=== PATIENT | male | born 1955 | race Caucasian/White ===

== ENCOUNTER 2016-04-01 15:07 | Inpatient (IN) | payer MEDICARE, OTHER ==
--- NOTE | 2016-05-31 09:34 | HP ---
DATE OF CLINIC: 05/22/2016 ERICK BRINK : 1955 PLANNED PROCEDURE: Right Total Knee Arthroplasty DATE OF PROCEDURE: June 03, 2016 SURGEON: Alber Sampson M.D. PCP: Dr. Tony Arrieta HISTORY OF PRESENT ILLNESS Erick Brink is a 60 year old male. * Medication list reviewed with patient allergy list reviewed with patient. Mr. Brink is in today pre-operatively for his upcoming right total knee arthroplasty with Dr. Sampson on 06/04/16. Patient presents in good spirits and is very eager to move forward with his procedure. Patient denies recent illness, change in health, or prior surgical complications. Patient is post L TKA 12/19/14 and did well. Patient has history of CAD with multiple stents. He is anticoagulated with aspirin 325mg daily. Patient is post right craniotomy/subdural evacuation in 2003 with poor memory and seizure disorder since that is well controlled. Patient lives independently. His prior consultation with Dr. Sampson follows: 59-year-old male well-known to me for a recent left TKA. He presents today for recheck of that as well as evaluation of his chronic right knee pain. He is over 7 months out from his left TKA, this was complicated by poor postop motion requiring a manipulation 4 1/2 months ago. He has been very happy with his results with the function of his left knee since then. He feels quite limited with diffuse right knee discomfort, worse with weight-bearing, non-radicular, non-mechanical. He would like to discuss additional workup and management. No change in his medical situation. He does have history of coronary disease s/p prior stent placement. His medical services assistant is Dr. Stern. He also has an upcoming evaluation, by his discussion, with a physician at [facility] for workup regarding possible asbestos exposure in the past. He has a history of a craniotomy for subdural in 2003 with poor memory as well as a seizure disorder that is well controlled. He has not had a seizure for over 5 years. CURRENT MEDICATION * Albuterol HFA 108 (90 Base) MCG/ACT Aerosol Solution as directed 0 days, 0 refills * Aspirin EC 325 MG Tablet Delayed Release 1 once a day 0 days, 0 refills * Atenolol 25 MG Tablet 1 once a day 0 days, 0 refills * Atorvastatin Calcium 80 MG Tablet as directed 0 days, 0 refills * [facility]S Fluticasone Propionate 50 MCG/ACT Suspension as directed 0 days, 0 refills * Divalproex Sodium 500 MG Tablet Delayed Release as directed 2 tablets daily, 0 days, 0 refills * Folic Acid 1 MG Tablet 1 once a day 0 days, 0 refills * HydroCHLOROthiazide 25 MG Tablet as directed 0 days, 0 refills * HydrOXYzine HCl 25 MG Tablet as needed take 1 tablet 3 times daily as needed, 0 days, 0 refills * HydrOXYzine HCl 25 MG Tablet as directed 0 days, 0 refills * Keppra 750 MG Tablet as directed 0 days, 0 refills * LevETIRAcetam 750 MG Tablet 2 twice a day 0 days, 0 refills * Naprosyn 500 MG Tablet as directed: one tab by mouth every day as needed for pain, 60 days, 0 refills * Nitrostat 0.4 MG Tablet Sublingual as needed 0 days, 0 refills * OxyCODONE HCl 5 MG Tablet 1 every night as needed, 30 days, 0 refills * Potassium Chloride ER 10 MEQ Capsule Extended Release 1 once a day 0 days, 0 refills * Prazosin HCl 2 MG Capsule as directed 0 days, 0 refills * Sertraline HCl 100 MG Tablet 1 once a day 0 days, 0 refills * Symbicort 160-4.5 MCG/ACT Aerosol as directed 0 days, 0 refills * TraZODone HCl 50 MG Tablet as directed 0 days, 0 refills * Voltaren 1 % Gel apply 1-2 grams to affected area BID, 30 days, 1 refills PAST MEDICAL/SURGICAL HISTORY Reported: Medical: Cardiac history CAD, stents and history of Arthritis. Surgical / Procedural: Knee replacement Left knee replaced 12/19/[address] Sampson, Left knee manipulation under anesthesis 03/14/[address] Sampson and Cardiac surgery CAD/angioplasty and 3 drug eluting stents placed 10/18/2013. Patient doesn't remember mush of his health history or surgical history. SOCIAL HISTORY Behavioral: Caffeine use and chewing tobacco. Smoking status: Never smoker. Alcohol: Alcohol use. Work: Occupation Retired . ALLERGIES * OxyContin Reaction: Skin Rashes/Hives REVIEW OF SYSTEMS Systemic: No fever and no recent weight change. Head: No head symptoms. Cardiovascular: No cardiovascular symptoms. Pulmonary: No pulmonary symptoms. Gastrointestinal: No gastrointestinal symptoms . Neuro: Siezure disorder. Psychological: No psychological symptoms. Skin: No skin lesions and no rash. PHYSICAL FINDINGS * Vitals taken 05/22/2016 03:33 pm BP-Sitting R 88/55 mmHg 100 - 120/60 - 80 BP Cuff Size Regular Pulse Rate-Sitting 67 bpm 50 - 100 Temp-Oral 97.2 F 96 - 101 Height 74 in 64 - 74 Weight 238 lbs 3.2 oz 123 - 215 Body Mass Index 30.6 kg/m2 Body Surface Area 2.34 m2 Pain Level 6 Ears, Nose, Throat: * ENT: normal. Lungs: * Clear to auscultation. Cardiovascular: Heart Rate and Rhythm: * Normal. Abdomen: * Normal. Neurological: Motor: * Dominant Hand = Right Hand. Patient is a well-developed, well-nourished male in no acute distress, normal-appearing mood and affect. He has a stiff-legged gait more noticeable at startup, slightly wide-based and antalgic on the right. Evaluation of the left knee shows a well-healed anterior incision, minimal swelling. Active motion is 0 to past 100, passive 0 to past 105 degrees. He has no focal periarticular tenderness. Patella tracks well. Good joint play and alignment. Calf is soft and NT. Distal light touch sensation and motor function are grossly intact and symmetric. Pulses are palpable. Gentle rotation of the hip is non-irritable. Evaluation of the right knee shows mild swelling. Skin integrity to be well-preserved, no wounds, rashes or lesions. Motion is 5-105 degrees passively with reproducible medial discomfort, fairly diffuse to palpation. NT laterally. Patella tracks well. There is some patellar crepitation and pain. NT in the proximal tibia. Calf is soft and NT. Distal light touch sensation and motor function are grossly intact and symmetric. Pulses are palpable. Gentle rotation of the hip is non-irritable. TESTS Patient was sent for radiographs following his appointment today, 4 views of the right knee. These showed some diffuse periarticular osteopenia. He does have tricompartmental degenerative changes. This is most notable on the AP flexion view and most prevalent in the medial compartment, although it does have suggestion of chondrocalcinosis. Patellofemoral joint is relatively well maintained. ASSESSMENT * Localized primary osteoarthritis of the right knee s/p L TKA 12/19/2014 doing well PREVIOUS TESTS * Test: URINALYSIS Report Date: 05/21/2016 GLUCOSE NEGATIVE PH,URINE 6.0 SPEC. GRAVITY 1.020 KETONE NEGATIVE NITRITE NEGATIVE BLOOD NEGATIVE BILIRUBIN NEGATIVE APPEARANCE CLEAR PROTEIN NEGATIVE COLOR YELLOW LEUK ESTERASE NEGATIVE UROBILINOGEN NORMAL * Test: CBC WITH DIFF Report Date: 05/21/2016 WBC 7.3 10*3/mL BASOPHIL 0.7 % RBC 5.12 10*6/uL NEUTROPHILS 68.4 % MCH 31.4 pg High MCHC 34.1 g/dL RDW 12.4 % MCV 92.2 fL PLATELET COUNT 180 10*3/mL IMM NEUT % 0.4 % IMM NEUT # 0.0 10*3/mL MONOCYTES 11.0 % EOSINOPHIL 1.4 % HCT 47.2 % HGB 16.1 g/L LYMPHOCYTE 18.1 % ANC 5.0 10*3/mL * Test: PROTHROMBIN TIME Report Date: 05/21/2016 PROTIME 10.3 s INR 0.98 * Test: PARTIAL THROMBOPLASTIN TIME Report Date: 05/21/2016 APTT 25.2 s * Test: COMPREHENSIVE METABOLIC PANEL Report Date: 05/21/2016 ALT/SGPT 16 U/L ALBUMIN 3.8 g/dL ALB/GLOB RATIO 1.2 BUN 14 mg/dL BUN/CREAT RATIO 14 CALCIUM 9.2 mg/dL GLUCOSE 111 mg/dL High CREATININE 1.0 mg/dL SODIUM 137 meq/L POTASSIUM 4.5 meq/L CHLORIDE 101 meq/L CARBON DIOXIDE 28 meq/L ANION GAP 13 meq/L TOT PROTEIN 6.9 g/dL GLOBULIN 3.1 g/dL BILI,TOTAL 0.6 mg/dL AST/SGOT 18 U/L ALK PHOSPHATASE 69 U/L GFR 76 THERAPY * Patient not eligible for fall risk assessment. PLAN * Total knee arthroplasty -Right Discussed with patient in detail the limitations, expectations as well as risks and possible complications of surgery including, but not limited to wound problems or infection, neurovascular injury, continued knee pain or dysfunction, including the possibility of prosthetic wear or failure over time that may require additional operative or non-operative treatment. Patient also realizes the perioperative risks including risks associated with anesthesia and would like to proceed. A full PAR conference was held, questions and concerns addressed and informed consent was obtained. Patient will be sent from my office for completion of the preoperative workup. [facility] consult for perioperative medical management. Patient will use aspirin 325mg daily postoperatively for DVT prophylaxis. Patient would like to perform their postop PT at [facility] initially with right total knee arthroplasty protocol WBAT. CARE TEAM Efren Stern MD Cardiovascular Disease Tony Arrieta, [facility] Donnie White MD Pulmonary Disease Tony Arrieta, [facility] RS/sg
[2016-06-03] MEDS ORDERED: IV START KIT ONE (06:33)
[2016-06-03] MEDS ORDERED: LACTATED RINGERS 1,000 ML ONE (06:33)
[2016-06-03] MEDS ORDERED: CELECOXIB 200 MG CAPSULE PO ONE ×2 (06:45→07:15)
[2016-06-03] MEDS ORDERED: CLONIDINE HCL 0.1 MG/24 HR (7 DAY PATCH) TD SCH ×2 (06:45→07:15)
[2016-06-03] MEDS ORDERED: TRANEXAMIC ACID 1,000 MG in SODIUM CHLORIDE 0.9% 100 ML IV PRN (06:45)
[2016-06-03] MEDS ORDERED: BUPIVACAINE 0.25% (MDV) 20 ML in SODIUM CHLORIDE 0.9% FLUSH 20 ML IF PRN (06:45)
[2016-06-03] MEDS ORDERED: GABAPENTIN 600 MG TABLET PO ONE ×2 (06:45→07:15)
[2016-06-03] MEDS ORDERED: FAMOTIDINE 20 MG TABLET PO ONE ×2 (06:45→07:15)
[2016-06-03] MEDS ORDERED: POLYMYXIN B SULFATE 500,000 UNITS, BACITRACIN 25,000 UNITS in SODIUM CHLORIDE 3 L IRRIG... IR PRN (06:45)
[2016-06-03] MEDS ORDERED: ONDANSETRON 4 MG/2ML 2 ML VIAL IV ONE ×2 (06:45→07:15)
[2016-06-03] MEDS ORDERED: TRAMADOL HCL 50 MG TABLET PO ONE (07:15)
[2016-06-03] MEDS ORDERED: OXYCODONE HCL 10 MG TAB.SR PO ONE ×2 (07:15→07:40)
[2016-06-03] MEDS ORDERED: PROPOFOL 60 ML IV ONE (07:17)
[2016-06-03] MEDS ORDERED: FENTANYL 100 MCG/2 ML VIAL ONE ×2 (07:17→07:18)
[2016-06-03] MEDS ORDERED: ROPIVACAINE 0.5% 30 ML VIAL ONE (07:17)
[2016-06-03] MEDS ORDERED: LIDOCAINE 2% (PRES FREE) 5 ML VIAL ONE (07:17)
[2016-06-03] MEDS ORDERED: CEFAZOLIN SODIUM 2 GRAM PREMIX 100 ML IV ONE (07:18)
[2016-06-03] MEDS ORDERED: MIDAZOLAM HCL 5 MG/5 ML VIAL ONE (07:18)
[2016-06-03] MEDS ORDERED: CEFAZOLIN SODIUM 2 GRAM PREMIX 100 ML IV PRN (07:19)
[2016-06-03] MEDS ORDERED: BUPIVACAINE 0.75% SPINAL AMPUL 2 ML ONE ×2 (07:29→07:35)
[2016-06-03] MEDS ORDERED: SPINAL PROCEDURAL TRAY 1 EACH ONE (07:29)
[2016-06-03] MEDS ORDERED: ONDANSETRON 4 MG/2ML 2 ML VIAL ONE (07:40)
[2016-06-03] MEDS ORDERED: TRAMADOL HCL 50 MG TABLET ONE (07:40)
[2016-06-03] MEDS ORDERED: CLONIDINE HCL 0.1 MG/24 HR (7 DAY PATCH) TD ONE (07:40)
[2016-06-03] MEDS ORDERED: GABAPENTIN 600 MG TABLET ONE (07:40)
[2016-06-03] MEDS ORDERED: FAMOTIDINE 20 MG TABLET ONE (07:40)
[2016-06-03] MEDS ORDERED: CELECOXIB 200 MG CAPSULE ONE (07:41)
[2016-06-03] MEDS ORDERED: BUPIVACAINE 0.25% (MDV) 24 ML, MORPHINE SULFATE 8 MG, EPINEPHRINE 0.3 MG in SODIUM CHLO... IF PRN (08:17)
[2016-06-03] MEDS ORDERED: NERVE BLOCK PROCEDURAL TRAY 1 EACH ONE (08:24)
[2016-06-03] MEDS ORDERED: SODIUM CHLORIDE 0.9% 100 ML IV ONE (09:52)
[2016-06-03] MEDS ORDERED: PHENYLEPHRINE 10 MG/1 ML (1%) VIAL ONE (09:52)
[2016-06-03] MEDS ORDERED: ATROPINE SULFATE 0.4 MG/1 ML VIAL IV PRN (10:09)
[2016-06-03] MEDS ORDERED: FENTANYL 100 MCG/2 ML VIAL IV PRN (10:09)
[2016-06-03] MEDS ORDERED: HYDROMORPHONE HCL 1 MG/ML SYRINGE IV PRN ×2 (10:09→12:41)
[2016-06-03] MEDS ORDERED: ON-Q PUMP/ROPIVACAINE 0.2% 450 ML in PREMIX BAG 1 EACH NB PRN (10:09)
[2016-06-03] MEDS ORDERED: HYDRALAZINE HCL 20 MG/1 ML VIAL IV PRN (10:09)
[2016-06-03] MEDS ORDERED: MEPERIDINE 25 MG/ML SYRINGE IV PRN (10:09)
[2016-06-03] MEDS ORDERED: LABETALOL HCL 5 MG/ML 20ML VIAL IV PRN (10:09)
[2016-06-03] MEDS ORDERED: ONDANSETRON 4 MG/2ML 2 ML VIAL IV PRN ×2 (10:09→12:41)
[2016-06-03] MEDS ORDERED: PROMETHAZINE HCL 25 MG/ML VIAL IM PRN (10:09)
[2016-06-03] MEDS ORDERED: NALOXONE HCL 0.4 MG/ML VIAL IV PRN (10:09)
[2016-06-03] MEDS ORDERED: LACTATED RINGERS 1,000 ML IV SCH (10:15)
[2016-06-03] MEDS ORDERED: PROPOFOL 20 ML IV ONE (11:13)
--- NOTE | 2016-06-03 11:49 | PCMBPN ---
Brief Post Op Note: Date of Procedure: 06/03/16 Preoperative Diagnosis: right knee DJD Postoperative Diagnosis: 1. [Same] Procedure: right TKA Surgeon: Alber Sampson MD Assist: Frank (ASHLY) Anesthesia: spinal/add block (mickey) Condition: stable to PAR Complications: none IV Fluids: 2300 mLs of LR Urine Output: 500 mLs Estimated Blood Loss: 200 mLs Tourniquet Time: ~40 Specimens: [N/A] Implants: Legion Drains: none
[2016-06-03] MEDS ORDERED: ON-Q PUMP/ROPIVACAINE 0.2% 450 ML ONE (11:58)
--- NOTE | 2016-06-03 12:13 | OP ---
NURIS BRINK [id number] : 1955 DATE OF SURGERY: PREOPERATIVE DIAGNOSIS: Degenerative joint disease right knee POSTOPERATIVE DIAGNOSIS: Same PROCEDURE: Right Total Knee Arthroplasty COMPONENTS: Legion size 7 posterior stabilized Oxinium cemented femoral component, size 6 cemented tibial base plate, 9mm high flexion cross-linked polyethylene articular insert, 35mm resurfacing patella. SURGEON: Alber Sampson M.D. COMMUNICATION CLERK: David ROSE) ANESTHESIA: Spinal plus adductor nerve block per Jc. ESTIMATED BLOOD LOSS: 200 cc IV FLUID REPLACEMENT: per anesthesia, 2.3 liters crystalloid. URINE OUTPUT: 500 cc DRAINS: None TOURNIQUET TIME: Approximately 40 minutes COMPLICATIONS: None HISTORY: Briefly, patient is a 60-year-old male with clinical and radiographic evidence of advanced degenerative disease of their right knee. They have failed traditional non-operative management and desire elective total knee arthroplasty. For additional details, please refer to the previously dictated Preoperative History and Physical Examination. A PAR conference was held, questions and concerns were addressed, and informed consent was obtained. FINDINGS: Tricompartmental changes more notable on the medial aspect of the tibial side and posterolaterally on the femoral side. He had a fixed flexion contracture under anesthesia. PROCEDURE: The patient was taken to the operating room after the placement of a spinal anesthetic and adductor nerve block. They were placed supine on the operating room table, a tourniquet was applied to the proximal thigh and the right lower extremity was prepped and draped out in the usual sterile fashion. Preoperative IV antibiotics were given empirically. Intraoperative DVT prophylaxis consisted of contralateral foot pumps. Personal filtration suits were used as was a closed room environment. A WHO timeout was taken. Surgical site was identified and confirmed. The leg was then elevated and the tourniquet inflated after gravity exsanguination. This was released after initial exposure and not utilized again until cementation. Tranexamic acid was infiltrated over 10 minutes prior to incision, 1 gram dose per protocol. A similar 2nd dose was given at initiation of closure. With the knee flexed, an anteromedial incision was made from the level of the tibial tubercle to two centimeters proximal to the superior pole of the patella. A medial arthrotomy was performed with a mini-mid vastus approach. A medial subperiosteal proximal tibial release was performed and a portion of the anterior fat pad was excised to improve visualization. The supra-patellar pouch was raised subperiosteally. The anterior and posterior cruciate ligaments were excised as were the remaining portions of the anterior horns of the medial and lateral menisci. Minimally invasive instrumentation and philosophy were used throughout the procedure in an attempt to decrease the extent of soft tissue disruption/damage. Patient matched cutting blocks were also used as per our preoperative plan. The [employer] patient matched distal femoral cutting block was applied and secured to the bone. We confirmed that the alignment matched our preoperative plan and made the distal femoral cut. I took an additional 2mm given his flexion contracture. We confirmed the size of the femur and placed the appropriate 4-in-1 cutting block making our anterior and posterior condylar cuts followed by the chamfer cuts. Residual marginal osteophytes were removed. Attention was then directed to the tibia which was retracted anteriorly. Remaining meniscal tissue was excised. The Visionaire patient matched tibial block was then positioned and secured to bone. Alignment was confirmed as per our preoperative plan and the proximal tibial cut made. The tibia was sized and we passed the 11 mm. punch. We then balanced the flexion and extension gaps by removal of residual posteromedial and posterolateral osteophytes under direct visualization as well as a limited posterior capsular release. We confirmed hemostasis. We then completed the femoral preparation by reaming and chiseling the notch. Femoral and tibial trial components were placed. We were able to obtain full extension with nice roll back and good coronal plane alignment and stability. The patella tracked well and was prepared using the Danial patellar reaming system removing 9 mm. of bone. Osteophytes were removed prior to this with a rongeur and we performed a circumferential limited denervation using cautery. This was sized accordingly and punch holes were drilled. We marked our tibial rotation and removed the trial components after passing the cruciform tibial punch. The knee was then re-exsanguinated and the tourniquet inflated. Double antibiotic pulsatile lavage was used to irrigate the knee and clean the cancellous sisi interstices which were then carefully dried. Periarticular injection was done at this point per protocol of the posterior capsule, posteromedial knee and synovium. Two doses of high viscosity, antibiotic impregnated polymethylmethacrylate were used to cement the tibial, femoral, and then patellar components. The knee was held in extension while the cement cured. All residual methacrylate was meticulously removed. Attention was then directed towards closure. We irrigated and the retinaculum was closed with a running #2 absorbable Strato-Fix suture. A second periarticular injection was done at this point per protocol. The repair was checked in maximum flexion. We then lightly irrigated the subcutaneous tissue and closed with interrupted 2-0 and 3-0 Vicryl Plus. The skin was then reapproximated with a subcuticular 4-0 Monocryl followed by Dermabond Prineo. A sterile compression dressing was applied. The patient was then transferred to their hospital bed and sent to the post anesthesia recovery room in stable condition. They tolerated the procedure well. Sponge, instrument, and needle count were correct. CC: Tony Arrieta DO
[2016-06-03] MEDS ORDERED: CALCIUM CARBONATE 500 MG TAB.CHEW PO PRN (12:41)
--- NOTE | 2016-06-03 12:41 | RAD ---
HISTORY: Postop right TKR COMPARISON: 07/26/2015 TECHNIQUE: two of the right knee FINDINGS: A total knee arthroplasty is present. Hardware is intact with out signs of failure or loosening. There is no fracture or dislocation. Postoperative soft tissue gas and bandaging are present. Faint vascular calcifications. IMPRESSION: Satisfactory postoperative exam.
[2016-06-03] MEDS ORDERED: DIVALPROEX SODIUM 500 MG PO SCH (13:00)
[2016-06-03] MEDS ORDERED: HYDROMORPHONE HCL 0.5 MG/0.5 ML SYRINGE IV PRN (13:09)
[2016-06-03] MEDS ORDERED: HYDROMORPHONE HCL 2 MG/ML SYRINGE IV PRN (13:10)
[2016-06-03 14:45] VITALS: BMI 30.4
[2016-06-03] MEDS ORDERED: ALBUTEROL SULFATE MDI 60 PUFFS/INHALER IH PRN (14:50)
[2016-06-03] MEDS ORDERED: TRAZODONE HCL 50 MG TABLET PO PRN (14:50)
[2016-06-03] MEDS ORDERED: NITROGLYCERIN 0.4 MG/TAB.SUBL BOT SL PRN (14:50)
[2016-06-03] MEDS ORDERED: HYDROXYZINE HCL 25 MG TABLET PO PRN (14:50)
[2016-06-03] MEDS ORDERED: LEVETIRACETAM 750 MG PO SCH (15:30)
[2016-06-03] MEDS: ATENOLOL 25 MG TABLET PO SCH (16:05)
[2016-06-03] MEDS: LEVETIRACETAM 500 MG TABLET PO SCH (16:05)
[2016-06-03] MEDS ORDERED: PUMP TUBING ONE (16:59)
[2016-06-03] MEDS: CEFAZOLIN SODIUM 1 GRAM PREMIX 1 G in Premix (D5W) 50 ml 1 EACH IV SCH (17:06)
[2016-06-03] MEDS: D5 1/2NS with 20 mEq KCL 1,000 ML IV SCH (17:07)
[2016-06-03] MEDS ORDERED: ALBUTEROL SULFATE 200 PUFFS/INH INHALER IH PRN (17:47)
[2016-06-03] MEDS: OXYCODONE HCL 5 MG TABLET PO PRN ×2 (18:09→21:17)
[2016-06-03] MEDS: ACETAMINOPHEN 500 MG TABLET PO SCH (18:09)
[2016-06-03] MEDS: TIOTROPIUM BROMIDE 18 MCG 5 CAP/INHALER IH SCH ×2 (18:11→22:08)
--- NOTE | 2016-06-03 19:46 | CONS ---
NURIS BRINK HOSPITALIST CONSULT DATE OF CONSULTATION: June 03, 2016 REQUESTING PHYSICIAN: Alber Sampson M.D. CHIEF COMPLAINT: Right total knee arthroplasty done today. RECENT HISTORY: The patient is a 60-year-old male with a prior history of chronic obstructive pulmonary disease and coronary artery disease with previous stents and a remote history of a brain injury with subdural and seizure disorder who is here for right total knee arthroplasty. At this point patient reports he is feeling well. Pain control is okay. Breathing is fine. No gastrointestinal complaints, no itching or other complaints. PAST MEDICAL: Remarkable for: 1. Myocardial infarction in 1991 with stenting done in 2013 on three different occasions. He had an ejection fraction of 40% on echocardiogram August,. 2. He has a history of seizure disorder. 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 He had a piece of metal fly up and hit him in the head and this caused a subdural hematoma which was evacuated by craniotomy. 3. He has a history of chronic obstructive pulmonary disease and is on Symbicort, Proventil, and Spiriva. He attributes this to his asbestos exposure. He is not a smoker and has no history of smoking. 4. He has a history of dyslipidemia on Crestor. 5. History of osteoarthritis. PAST SURGICAL HISTORY: Remarkable for: 1. Left shoulder surgery. 2. Left total knee arthroplasty. 3. Previous stents times three in 2013. 4. Craniotomy subdural evacuation in 2003. 5. He has also had polyps on colonoscopy which were removed on two different occasions. ALLERGIES: Computer lists: 1. AMOXICILLIN. 2. MORPHINE. 3. FLUOXETINE. 4. OXYCODONE. HE INDICATED THAT OXYCODONE CAUSED HIVES. HOME MEDICATIONS: Taken from the computer: 1. Albuterol two puffs inhaled every four hours as needed. 2. Aspirin 325 mg daily. 3. Atenolol 25 mg orally daily. 4. Symbicort 160 one puff twice daily. 5. Clopidogrel 75 mg daily. 6. Divalproex 1000 mg at bedtime. 7. Docusate 100 mg orally twice daily. 8. Folic acid 1 mg orally daily 9. Hydrochlorothiazide 12.5 mg daily. 10. [place] 7.5/325 one-half to two orally every four hours as needed. 11. Hydroxyzine 25 mg orally three times daily as needed. 12. Keppra 1500 mg orally twice daily. 13. Nitroglycerin 0.4 mg sublingual every five minutes as needed. 14. Potassium chloride 10 mEq orally daily. 15. Crestor 40 mg at bedtime. 16. Sertraline 100 mg orally daily. 17. Spiriva one puff inhaled daily. 18. Trazodone 50 mg at bedtime. SOCIAL HISTORY: He is single. He is times two. He is a of both the [employer] and the [employer] having served 23 1/2 years and is mostly disabled from this. He denies any history of smoking. He reports two or three beers a week and has never had any withdrawal symptoms. He has no pets and is going to a new [facility] on [address]. FAMILY HISTORY: Positive for coronary artery disease. He does not have children. REVIEW OF SYSTEMS: Eyes, are okay. Ears, fine although he does appear to be somewhat hard of hearing. Nose is okay. Mouth is okay. He has about four teeth left on the lower jaw. He does not have dentures. Neck has been okay. Breathing, he uses albuterol if he gets short of breath, and he notes he can get short of breath [facility] walking through [place]. Stomach has been okay. Bladder has been okay. Left knee previously operated on and he notes that he had a lot of constipation associated with that and actually needed an enema. Previous use of Milk of Magnesia was not helpful and the suppository worked better for him. He also notes that the codeine that he had before was helpful for his cough. Arms are okay but his left shoulder is bothering him, and he is hoping to have this repaired later. PHYSICAL EXAM: GENERAL: A non-toxic male slightly hard of hearing. VITAL SIGNS: Temperature 97.6, pulse 81, blood pressure 107/78, 94% saturation on room air, respirations 14. HEAD: Is normocephalic, atraumatic. EYES: Pupils are small but otherwise unremarkable. EARS: Are normal bilaterally. Somewhat hard of hearing. NOSE: Is normal, unremarkable, no discharge. MOUTH: Lower incisors present but otherwise he is edentulous. Tongue is unremarkable. NECK: Is supple without masses or adenopathy. No jugular venous distention is noted. LUNGS: Diminished air movement bilaterally particularly posteriorly. Slightly coarse breath sounds are noted anteriorly. HEART: Regular without significant murmur noted. ABDOMEN: Is obese, soft, nontender, nondistended. Bowel sounds are normal. No rebound. No guarding. No masses. GENITOURINARY: Deferred but [place] is draining clear yellow urine. EXTREMITIES: Right knee is dressed and has a cooling sleeve on. LESA hose bilaterally. Compression bilaterally. He is able to wiggle his toes on both sides. He does note some soreness on the left. Arms are unremarkable. Handshake is normal. NEUROLOGICAL: Eye contact is good. Speech is appropriate. He is mildly tangential on answering questions but is able to answer them. LABORATORY: Preoperatively, showed a white count 7.3, hemoglobin 16.1, platelets 180, INR 0.98. Sodium 137, potassium 4.5, chloride 101, CO2 28, BUN 14, creatinine 1.0, glucose 111, calcium 9.2, Liver function tests are normal. Urinalysis is normal. IMAGIN. Knee x-ray, normal postoperative exam. 2. Chest x-ray May 21, 2070, showed scarring, no acute changes. Post surgical changes on the left shoulder. ASSESSMENT AND PLAN: 1. Status post right total knee arthroplasty. Appreciate orthopedic, nursing and therapeutic care. 2. History of coronary artery disease with ischemic cardiomyopathy, ejection fraction noted at 40% on August,. It appears to be stable. We will continue on medications including aspirin and atenolol. 3. History of traumatic brain injury with subdural and subsequent epilepsy, stable. We will continue on his medications. Patient reports last seizure was four or five years ago. 4. 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 Continue on medications. He has no history of smoking. Nebulizers as needed. 5. Dyslipidemia. Continue on Crestor. 6. Hypertension, anticipate parameters for medication. 7. History of hives. We will review pain medicine regimen with Dr. Sampson and consider antihistamines if having significant difficulties. 8. Venous thrombosis prophylaxis. Anticipate use of aspirin per orthopedics. Thank you for this consultation. We will follow with you. cc: Tony Arrieta D.O. Efren Stern M.D. Donnie White M.D. Alber Sampson M.D.
[2016-06-03] MEDS ORDERED: FLUTICASONE/SALMETEROL 250/50 14 PUFFS/DISK IH SCH (21:00)
[2016-06-03] MEDS: DOCUSATE SODIUM 100 MG CAPSULE PO SCH ×2 (21:17→22:08)
[2016-06-03] MEDS: ROSUVASTATIN CALCIUM 10 MG TABLET PO SCH (21:18)
[2016-06-03] MEDS: ASCORBIC ACID 500 MG TABLET PO SCH (21:18)
[2016-06-03] MEDS: KETOROLAC TROMETHAMINE 30 MG/ML 1 ML VIAL IV PRN (21:19)
[2016-06-03] MEDS: DIVALPROEX SODIUM 500 MG PO SCH (21:20)
[2016-06-04] MEDS: D5 1/2NS with 20 mEq KCL 1,000 ML IV SCH ×2 (01:22→09:51)
[2016-06-04] MEDS: CEFAZOLIN SODIUM 1 GRAM PREMIX 1 G in Premix (D5W) 50 ml 1 EACH IV SCH (01:22)
[2016-06-04] MEDS: ACETAMINOPHEN 500 MG TABLET PO SCH ×5 (02:40→19:24)
[2016-06-04] MEDS: KETOROLAC TROMETHAMINE 30 MG/ML 1 ML VIAL IV PRN (05:07)
[2016-06-04] MEDS: LEVETIRACETAM 500 MG TABLET PO SCH ×3 (05:13→21:19)
[2016-06-04 06:06] LABS: HEMATOCRIT 40.5 % (32.0-52.0); HEMOGLOBIN 13.5 gm/l (14.0-18.0); MEAN CELL VOLUME 94.8 fl (80.0-94.0); MEAN CORPUSCULAR HEMOGLOBIN 31.6 pg (27.0-31.0); MEAN CORPUSCULAR HGB CONC 33.3 g/dl (33.0-37.0); RED CELL DISTRIBUTION WIDTH 12.2 % (11.5-14.5)
[2016-06-04 06:26] LABS: CALCIUM 8.2 mg/dL (8.6-10.3)
[2016-06-04] MEDS ORDERED: REMOVE PATCH 1 EACH UNIT TD SCH ×2 (06:45→07:15)
[2016-06-04] MEDS: OXYCODONE HCL 5 MG TABLET PO PRN ×4 (07:50→21:32)
--- NOTE | 2016-06-04 08:10 | PDOC43 ---
- Subjective Findings: Pt seen this morning awake and doing well. Pain seems controlled at this point. Subjective: Reports Pain Tolerable, Denies Chest Pain, Denies Shortness of Breath, Denies Nausea, Denies Vomiting, Denies Fever - Objective Vital Signs Temperature 97.4 F 06/04/16 04:56 Pulse Rate 72 06/04/16 04:56 Respiratory Rate 16 06/04/16 04:56 Blood Pressure 107/73 06/04/16 04:56 O2 Saturation by Pulse Oximetry 97 06/04/16 04:56 Oxygen Delivery Method Room Air Oxygen Flow Rate 0 Laboratory 06/04/16 05:30 06/04/16 05:30 06/04/16 05:30 RBC 4.27 L MCV 94.8 H MCH 31.6 H Estimated GFR 86 H Calcium 8.2 L Active Medication Orders Category Date Time Status Acetaminophen [Tylenol] Med 06/03/16 18:30 Active 1,000 mg PO Q6H Albuterol Sulfate Mdi [Ventolin Hfa Mdi] Med 06/03/16 14:50 Active 0 puffs IH Q4H PRN Ascorbic Acid [Vitamin C] Med 06/03/16 21:00 Active 500 mg PO BID Aspirin (Enteric Coated) [Ecotrin] Med 06/04/16 09:00 Active 325 mg PO DAILY Aspirin (Enteric Coated) [Ecotrin] Med 06/04/16 09:00 Active 325 mg PO DAILY Atenolol [Tenormin] Med 06/03/16 15:00 Active 25 mg PO DAILY Bisacodyl [Dulcolax] Med 06/06/16 11:37 Active 10 mg [place] DAILY PRN Budesonide/Formoterol 160/4.5 [Symbicort 160-4.5 Mcg Med 06/03/16 21:00 Pending Inhaler] 1 puffs IH BID Calcium Carbonate [Tums] Med 06/03/16 12:41 Active 1,000 - 2,000 mg PO Q2H PRN Celecoxib [Celebrex] Med 06/04/16 09:00 Active 200 mg PO DAILY D5 1/2NS with 20 mEq KCL [D51/2NS with 20 mEq KCL] 1, Med 06/03/16 12:41 Active 000 ml IV 125 mls/hr Divalproex Sodium ER [Depakote ER] Med 06/03/16 21:00 Active 1,000 mg PO BEDTIME Docusate Sodium [Colace] Med 06/03/16 21:00 Active 100 mg PO BID Docusate Sodium [Colace] Med 06/03/16 21:00 Active 100 mg PO BID Folic Acid Med 06/04/16 09:00 Active 1 mg PO DAILY Hydrochlorothiazide Med 06/04/16 09:00 Active 12.5 mg PO DAILY Hydromorphone HCl [Dilaudid] Med 06/03/16 12:41 Active 0.5 - 2 mg IV Q2H PRN Hydromorphone HCl [Dilaudid] Med 06/03/16 13:09 Active 0.5 - 2 mg IV Q2H PRN Hydromorphone HCl [Dilaudid] Med 06/03/16 13:10 Active 0.5 - 2 mg IV Q2H PRN Hydroxyzine HCl [Atarax] Med 06/03/16 14:50 Active 25 mg PO TID PRN Ketorolac Tromethamine [Toradol] Med 06/03/16 12:41 Active 30 mg IV Q6H PRN Levetiracetam [Keppra] Med 06/03/16 15:30 Active 1,500 mg PO BID Magnesium Hydroxide [Milk of Magnesia] Med 06/04/16 11:37 Active 30 ml PO DAILY PRN Multivitamins [One-A-Day] Med 06/04/16 09:00 Active 1 tab PO DAILY Nitroglycerin [Nitrostat] Med 06/03/16 14:50 Active 0.4 mg SL Q5M PRN On-Q Pump/Ropivacaine 0.2% 450 ml Med 06/03/16 12:41 Active Premix Bag [Premix Fluid] 1 each NB Q50H Ondansetron 4 mg/2ml Vial [Zofran] Med 06/03/16 12:41 Active 4 - 6 mg IV Q6H PRN Oxycodone HCl [Roxicodone] Med 06/03/16 12:41 Active 5 - 15 mg PO Q3H PRN Potassium Chloride [K-Dur] Med 06/04/16 09:00 Active 10 meq PO DAILY Remove Patch Med 06/04/16 11:37 Once 1 each TD X1 ONE Rosuvastatin Calcium [Crestor] Med 06/03/16 21:00 Active 40 mg PO BEDTIME Sertraline HCl [Zoloft] Med 06/04/16 09:00 Active 100 mg PO DAILY Sodium [place] 0.9% Flush [Normal Saline 10ml Flush] Med 06/03/16 12:41 Active 10 - 50 ml IV PRN PRN Sodium [place] 0.9% Flush [Normal Saline 10ml Flush] Med 06/03/16 17:00 Active 10 ml IV Q8HR Tiotropium [place] 18 Mcg [Spiriva Handihaler] Med 06/03/16 19:30 Active 1 cap IH DAILY Trazodone HCl [Desyrel] Med 06/03/16 14:50 Active 50 mg PO BEDTIME PRN Intake and Output 06/02/16 06/03/16 06/04/16 23:59 23:59 23:59 Intake Total 2950 1338 Output Total 950 550 Balance 2000 788 General: Afebrile HEENT: Atraumatic Lungs: Normal Air Movement Abdomen: Non-Distended Skin: Normal Color Neurological: Alert - Right Lower Extremity Motor: Extensor Hallucis Longus: 5/5, Tibialis Anterior: 5/5, Gastrocnemius: 5/5 , Peroneals: 5/5, Quadriceps: 3/5 Gross Sensation to Light Touch: Present: Deep Peroneal Nerve, Superficial Peroneal Nerve Capillary Refill: < 3 Seconds Motion: Calf soft NT Knee Rom 0-65 Ind SLR - Problems (1) Status post right knee replacement Status: AcuteAssessment/Plan: Pod #1 1. Physical Therapy: Mobilize with PT/OT. Encouraged bed exercise. Will add CPM as he struggled with motion after LTKA 2. Pain Control:Per protocol. Will keep the nerve cath at 8ml/hr for this am. If pain is fine in afternoon will decrease. 3. DVT Prophylaxis: ASA, foot pumps and mobility 4. Disposition: Doing fine at this point 5. Medical Issues:Management per hospitalist. Appreciate the care and consult.
[2016-06-04] MEDS ORDERED: TIOTROPIUM BROMIDE 18 MCG 5 CAP/INHALER IH SCH (09:00)
[2016-06-04] MEDS ORDERED: ASPIRIN (ENTERIC COATED) 325 MG TABLET.EC PO SCH (09:00)
[2016-06-04] MEDS: TIOTROPIUM BROMIDE 18 MCG 5 CAP/INHALER IH SCH (10:02)
[2016-06-04] MEDS: DOCUSATE SODIUM 100 MG CAPSULE PO SCH ×3 (10:05→21:16)
[2016-06-04] MEDS: CELECOXIB 200 MG CAPSULE PO SCH (10:06)
[2016-06-04] MEDS: SERTRALINE HCL 50 MG TABLET PO SCH (10:07)
[2016-06-04] MEDS: POTASSIUM CHLORIDE 10 MEQ TAB.SR PO SCH (10:07)
[2016-06-04] MEDS: FOLIC ACID 1 MG TABLET PO SCH (10:08)
[2016-06-04] MEDS: MULTIVITAMINS 1 TAB TABLET PO SCH (10:08)
[2016-06-04] MEDS: ASPIRIN (ENTERIC COATED) 325 MG TABLET.EC PO SCH (10:08)
[2016-06-04] MEDS: ATENOLOL 25 MG TABLET PO SCH (10:09)
[2016-06-04] MEDS: ASCORBIC ACID 500 MG TABLET PO SCH ×2 (10:09→21:16)
[2016-06-04] MEDS: HYDROCHLOROTHIAZIDE 12.5 MG CAP PO SCH (10:14)
--- NOTE | 2016-06-04 11:30 | PDOC43 ---
- Subjective Chief Complaint: R TKA Patient reports doing ok, getting Bojor[place] out shortly, breathing doing well, pain control good. No new c/o. - Objective Vital Signs Temperature 97.4 F 06/04/16 04:56 Pulse Rate 76 06/04/16 09:05 Respiratory Rate 16 06/04/16 07:00 Blood Pressure 107/73 06/04/16 09:05 O2 Saturation by Pulse Oximetry 97 06/04/16 09:05 Oxygen Delivery Method Room Air Oxygen Flow Rate 0 Vital Signs Last 12 Hours Temp Pulse Resp BP Pulse Ox 06/04/16 09:05 76 107/73 97 06/04/16 07:00 16 06/04/16 04:56 97.4 F 72 16 107/73 97 06/04/16 01:27 74 104/71 95 06/04/16 01:22 18 06/04/16 00:04 97.6 F 76 18 92/65 94 Intake and Output 06/02/16 06/03/16 06/04/16 23:59 23:59 23:59 Intake Total 2950 1338 Output Total 950 550 Balance 2000 788 General: Alert, Cooperative, No Acute Distress Lungs: Clear to Auscultation Bilaterally, Normal Air Movement Cardiovascular: Regular Rate and Rhythm Abdomen: Soft, Normal Bowel Sounds, Non-Distended Extremities: Other (leg dressed, CDI.), No Edema Neurological: Normal Speech Psych/Mental Status: Other (appears at baseline) Laboratory 06/04/16 05:30 06/04/16 05:30 06/04/16 05:30 RBC 4.27 L MCV 94.8 H MCH 31.6 H Estimated GFR 86 H Calcium 8.2 L Current Medications: Current meds reviewed in EMR. Active Medications Acetaminophen (Tylenol) 1,000 mg PO Q6H [facility] Last Admin: 06/04/16 06:09 Dose: Not Given Albuterol Sulfate (Ventolin Hfa Mdi) 0 puffs IH Q4H PRN PRN Reason: Wheezing Ascorbic Acid (Vitamin C) 500 mg PO BID [facility] Last Admin: 06/04/16 10:09 Dose: 500 mg Aspirin (Ecotrin) 325 mg PO DAILY [facility] Last Admin: 06/04/16 10:08 Dose: 325 mg Atenolol (Tenormin) 25 mg PO DAILY [facility] Last Admin: 06/04/16 10:09 Dose: 25 mg Bisacodyl (Dulcolax) 10 mg [place] DAILY PRN PRN Reason: If no BM by POD#3 Calcium Carbonate/Glycine (Tums) 1,000 - 2,000 mg PO Q2H PRN PRN Reason: Heartburn/Indigestion Celecoxib (Celebrex) 200 mg PO DAILY [facility] Last Admin: 06/04/16 10:06 Dose: 200 mg Divalproex Sodium (Depakote Er) 1,000 mg PO BEDTIME [facility] Last Admin: 06/03/16 21:20 Dose: 1,000 mg Docusate Sodium (Colace) 100 mg PO BID [facility] Last Admin: 06/04/16 10:05 Dose: 100 mg Folic Acid (Folic Acid) 1 mg PO DAILY [facility] Last Admin: 06/04/16 10:08 Dose: 1 mg Hydrochlorothiazide (Hydrochlorothiazide) 12.5 mg PO DAILY [facility] Last Admin: 06/04/16 10:14 Dose: Not Given Hydromorphone HCl (Dilaudid) 0.5 - 2 mg IV Q2H PRN PRN Reason: Pain (Severe/Breakthrough) Stop: 06/04/16 12:42 Hydromorphone HCl (Dilaudid) 0.5 - 2 mg IV Q2H PRN PRN Reason: Pain (Severe/Breakthrough) Hydromorphone HCl (Dilaudid) 0.5 - 2 mg IV Q2H PRN PRN Reason: Pain (Severe/Breakthrough) Hydroxyzine HCl (Atarax) 25 mg PO TID PRN PRN Reason: Anxiety Ropivacaine 450 ml/ Sterile (Water) 450 mls @ 0 mls/hr NB Q50H PRN; Protocol PRN Reason: Pain Ketorolac Tromethamine (Toradol) 30 mg IV Q6H PRN PRN Reason: Pain (Moderate/Severe) Stop: 06/04/16 11:37 Last Admin: 06/04/16 05:07 Dose: 30 mg Levetiracetam (Keppra) 1,500 mg PO BID [facility] Last Admin: 06/04/16 05:13 Dose: 1,500 mg Magnesium Hydroxide (Milk Of Magnesia) 30 ml PO DAILY PRN PRN Reason: If no BM by evening of POD#1 Miscellaneous (Remove Patch) 1 each TD X1 ONE Stop: 06/04/16 11:38 Last Admin: 06/04/16 11:16 Dose: 1 each Multivitamins (One-A-Day) 1 tab PO DAILY [facility] Last Admin: 06/04/16 10:08 Dose: 1 tab Nitroglycerin (Nitrostat) 0.4 mg SL Q5M PRN PRN Reason: Chest Pain Ondansetron HCl (Zofran) 4 - 6 mg IV Q6H PRN PRN Reason: Nausea/Vomiting Last Admin: 06/03/16 21:31 Dose: 4 mg Oxycodone HCl (Roxicodone) 5 - 15 mg PO Q3H PRN PRN Reason: Pain (Moderate) Last Admin: 06/04/16 10:07 Dose: 5 mg Potassium Chloride (K-Dur) 10 meq PO DAILY [facility] Last Admin: 06/04/16 10:07 Dose: 10 meq Rosuvastatin Calcium (Crestor) 40 mg PO BEDTIME [facility] Last Admin: 06/03/16 21:18 Dose: 40 mg Sertraline HCl (Zoloft) 100 mg PO DAILY [facility] Last Admin: 06/04/16 10:07 Dose: 100 mg Sodium [place] (Normal Saline 10ml Flush) 10 - 50 ml IV PRN PRN PRN Reason: IV Flush Sodium Chloride (Normal Saline 10ml Flush) 10 ml IV Q8HR [facility] Last Admin: 06/04/16 10:05 Dose: 10 ml Tiotropium [place] (Spiriva Handihaler) 1 cap IH DAILY [facility] Last Admin: 06/04/16 10:02 Dose: 18 mcg Trazodone HCl (Desyrel) 50 mg PO BEDTIME PRN PRN Reason: Insomnia - Problems: Assessment/Plan (1) Status post right knee replacement Status: AcuteAssessment/Plan: Appreciate ortho, therapeutic, nursing care. (2) Chronic obstructive pulmonary disease (COPD) Qualifiers: COPD type: unspecified COPD Qualifier Code: (J44.9) Chronic obstructive pulmonary disease, unspecified Status: ChronicAssessment/Plan: Stable, continue tx. VTE Prophylaxis: aspirin, mechanical
[2016-06-04] MEDS: ON-Q PUMP/ROPIVACAINE 0.2% 450 ML in PREMIX BAG 1 EACH NB PRN ×2 (11:31→19:00)
[2016-06-04] MEDS ORDERED: REMOVE PATCH 1 EACH UNIT TD ONE (11:37)
[2016-06-04] MEDS ORDERED: MAGNESIUM HYDROXIDE 30 ML UDCUP PO PRN (11:37)
[2016-06-04] MEDS: BUDESONIDE/FORMOTEROL 160/4.5 60 PUFFS/6 G INHALER IH SCH ×2 (13:56→21:18)
[2016-06-04] MEDS ORDERED: ALBUTEROL SULFATE MDI 60 PUFFS/INHALER IH PRN (17:45)
[2016-06-04] MEDS: ROSUVASTATIN CALCIUM 10 MG TABLET PO SCH (21:15)
[2016-06-04] MEDS: DIVALPROEX SODIUM 500 MG PO SCH (21:17)
[2016-06-05] MEDS: ACETAMINOPHEN 500 MG TABLET PO SCH ×4 (00:34→17:51)
[2016-06-05] MEDS: OXYCODONE HCL 5 MG TABLET PO PRN ×2 (06:11→12:44)
[2016-06-05 06:55] LABS: HEMATOCRIT 38.4 % (32.0-52.0); HEMOGLOBIN 12.8 gm/l (14.0-18.0)
[2016-06-05] MEDS: ON-Q PUMP/ROPIVACAINE 0.2% 450 ML in PREMIX BAG 1 EACH NB PRN (08:10)
[2016-06-05] MEDS: HYDROCHLOROTHIAZIDE 12.5 MG CAP PO SCH (09:32)
[2016-06-05] MEDS: ASPIRIN (ENTERIC COATED) 325 MG TABLET.EC PO SCH (09:32)
[2016-06-05] MEDS: ASCORBIC ACID 500 MG TABLET PO SCH ×2 (09:32→20:53)
[2016-06-05] MEDS: ATENOLOL 25 MG TABLET PO SCH (09:32)
[2016-06-05] MEDS: FOLIC ACID 1 MG TABLET PO SCH (09:32)
[2016-06-05] MEDS: SERTRALINE HCL 50 MG TABLET PO SCH (09:32)
[2016-06-05] MEDS: DOCUSATE SODIUM 100 MG CAPSULE PO SCH ×2 (09:32→20:53)
[2016-06-05] MEDS: MULTIVITAMINS 1 TAB TABLET PO SCH (09:32)
[2016-06-05] MEDS: TIOTROPIUM BROMIDE 18 MCG 5 CAP/INHALER IH SCH (09:33)
[2016-06-05] MEDS: LEVETIRACETAM 500 MG TABLET PO SCH ×2 (09:33→20:55)
[2016-06-05] MEDS: POTASSIUM CHLORIDE 10 MEQ TAB.SR PO SCH (09:33)
[2016-06-05] MEDS: BUDESONIDE/FORMOTEROL 160/4.5 60 PUFFS/6 G INHALER IH SCH ×2 (09:33→20:55)
[2016-06-05] MEDS: CELECOXIB 200 MG CAPSULE PO SCH (09:33)
--- NOTE | 2016-06-05 09:54 | PDOC43 ---
- Subjective Findings: Ortho POD 2 R TKA Patient awake, A and O times 4 this am and in good spirits. C/O mild knee pain but well controlled. Denies CP/SOB/NV. Currently eating solid PO and tolerating well. Positive flatus. Good progress with POD 1 ambulatory PT. Subjective: Denies Chest Pain, Denies Shortness of Breath, Denies Nausea, Denies Vomiting, Denies Fever - Objective Vital Signs Temperature 97.6 F 06/05/16 07:49 Pulse Rate 80 06/05/16 07:49 Respiratory Rate 18 06/05/16 07:49 Blood Pressure 136/84 06/05/16 07:49 O2 Saturation by Pulse Oximetry 97 06/05/16 07:49 Oxygen Delivery Method Room Air Oxygen Flow Rate 0 Laboratory 06/05/16 06:20 06/04/16 05:30 Active Medication Orders Category Date Time Status Acetaminophen [Tylenol] Med 06/03/16 18:30 Active 1,000 mg PO Q6H Albuterol Sulfate Mdi [Ventolin Hfa Mdi] Med 06/04/16 17:45 Active 0 puffs IH Q4H PRN Ascorbic Acid [Vitamin C] Med 06/03/16 21:00 Active 500 mg PO BID Aspirin (Enteric Coated) [Ecotrin] Med 06/04/16 09:00 Active 325 mg PO DAILY Atenolol [Tenormin] Med 06/03/16 15:00 Active 25 mg PO DAILY Bisacodyl [Dulcolax] Med 06/06/16 11:37 Active 10 mg [place] DAILY PRN Budesonide/Formoterol 160/4.5 [Symbicort 160-4.5 Mcg Med 06/03/16 21:00 Active Inhaler] 1 puffs IH BID Calcium Carbonate [Tums] Med 06/03/16 12:41 Active 1,000 - 2,000 mg PO Q2H PRN Celecoxib [Celebrex] Med 06/04/16 09:00 Active 200 mg PO DAILY Divalproex Sodium ER [Depakote ER] Med 06/03/16 21:00 Active 1,000 mg PO BEDTIME Docusate Sodium [Colace] Med 06/03/16 21:00 Active 100 mg PO BID Folic Acid Med 06/04/16 09:00 Active 1 mg PO DAILY Hydrochlorothiazide Med 06/04/16 09:00 Active 12.5 mg PO DAILY Hydromorphone HCl [Dilaudid] Med 06/03/16 13:09 Active 0.5 - 2 mg IV Q2H PRN Hydromorphone HCl [Dilaudid] Med 06/03/16 13:10 Active 0.5 - 2 mg IV Q2H PRN Hydroxyzine HCl [Atarax] Med 06/03/16 14:50 Active 25 mg PO TID PRN Levetiracetam [Keppra] Med 06/03/16 15:30 Active 1,500 mg PO BID Magnesium Hydroxide [Milk of Magnesia] Med 06/04/16 11:37 Active 30 ml PO DAILY PRN Multivitamins [One-A-Day] Med 06/04/16 09:00 Active 1 tab PO DAILY Nitroglycerin [Nitrostat] Med 06/03/16 14:50 Active 0.4 mg SL Q5M PRN On-Q Pump/Ropivacaine 0.2% 450 ml Med 06/03/16 12:41 Active Premix Bag [Premix Fluid] 1 each NB Q50H Ondansetron 4 mg/2ml Vial [Zofran] Med 06/03/16 12:41 Active 4 - 6 mg IV Q6H PRN Oxycodone HCl [Roxicodone] Med 06/03/16 12:41 Active 5 - 15 mg PO Q3H PRN Potassium Chlor[place] [K-Dur] Med 06/04/16 09:00 Active 10 meq PO DAILY Rosuvastatin Calcium [Crestor] Med 06/03/16 21:00 Active 40 mg PO BEDTIME Sertraline HCl [Zoloft] Med 06/04/16 09:00 Active 100 mg PO DAILY Sodium Chloride 0.9% Flush [Normal Saline 10ml Flush] Med 06/03/16 12:41 Active 10 - 50 ml IV PRN PRN Sodium Chloride 0.9% Flush [Normal Saline 10ml Flush] Med 06/03/16 17:00 Active 10 ml IV Q8HR Tiotropium [place] 18 Mcg [Spiriva Handihaler] Med 06/03/16 19:30 Active 1 cap IH DAILY Trazodone HCl [Desyrel] Med 06/03/16 14:50 Active 50 mg PO BEDTIME PRN Intake and Output 0406/04/16 06/05/16 23:59 23:59 23:59 Intake Total 2950 2005 1180 Output Total 720 6401 3901 Balance 1999 531 320 Neurological: No Normal Gait (ambulating with a walker post R TKA) Peripheral Pulses: Right Posterior Tibialis: 1+, Right Dorsalis Pedis: 1+ - Right Lower Extremity Incision: Well Approximated (with a subcutaneous closure, skin glue and mesh. Moderate knee edema. Thigh and calf are SNT.), No Dressing Saturated, No Shadow Drainage, No Drainage, No Erythema, No Rash Motor: Extensor Hallucis Longus: 5/5, Tibialis Anterior: 5/5, Gastrocnemius: 4/5 , Peroneals: 5/5, Quadriceps: 4/5 Gross Sensation to Light Touch: Present: Deep Peroneal Nerve, Superficial Peroneal Nerve, Medial Plantar Nerve, Lateral Plantar Nerve, Sural Nerve, Saphenous Nerve Motion: Currently in CPM to 50 and tolerating well, Ankle full AROM. - Problems (1) Status post right knee replacement Status: AcuteAssessment/Plan: Ortho POD 2 R TKA 1. Continue: Physical Therapy: Mobilize with PT/OT. Encouraged bed exercise. Will add CPM as he struggled with motion after LTKA 2. Continue: Pain Control:Per protocol. Ween nerve cath as tolerated. 3. Continue: DVT Prophylaxis: ASA, foot pumps and mobility 4. Disposition: Doing fine at this point and will likely transfer to [facility] 06/06/16. 5. Medical Issues:Management per hospitalist. Appreciate the care and consult.
--- NOTE | 2016-06-05 13:39 | PDOC43 ---
- Subjective Chief Complaint: R TKA Patient reports doing ok. No new c/o. Breathing ok, no Gi c/o. Looking forward to DC in am. - Objective Vital Signs Temperature 97.6 F 06/05/16 11:00 Pulse Rate 83 06/05/16 13:00 Respiratory Rate 16 06/05/16 11:00 Blood Pressure 134/76 06/05/16 13:00 O2 Saturation by Pulse Oximetry 94 06/05/16 13:00 Oxygen Delivery Method Room Air Oxygen Flow Rate 0 Vital Signs Last 12 Hours Temp Pulse Resp BP Pulse Ox 06/05/16 13:00 83 134/76 94 06/05/16 11:00 97.6 F 93 16 107/78 94 06/05/16 07:49 97.6 F 80 18 136/84 97 06/05/16 03:42 97.8 F 74 18 115/72 93 Intake and Output 06/03/16 06/04/16 06/05/16 23:59 23:59 23:59 Intake Total 2950 2006 1180 Output Total 950 1475 1500 Balance 1999 531 -320 General: Alert, Cooperative, No Acute Distress HEENT: Atraumatic Lungs: Clear to Auscultation Bilaterally, Normal Air Movement Cardiovascular: Regular Rate and Rhythm Abdomen: Soft Extremities: Other (CPM on, cooling sleeve, SCDs on.) Neurological: Normal Speech Psych/Mental Status: Normal Affect Laboratory 06/05/16 06:20 06/04/16 05:30 Current Medications: Current meds reviewed in EMR. Active Medications Acetaminophen (Tylenol) 1,000 mg PO Q6H [facility] Last Admin: 06/05/16 12:43 Dose: 1,000 mg Albuterol Sulfate (Ventolin Hfa Mdi) 0 puffs IH Q4H PRN PRN Reason: Wheezing Ascorbic Acid (Vitamin C) 500 mg PO BID [facility] Last Admin: 06/05/16 09:32 Dose: 500 mg Aspirin (Ecotrin) 325 mg PO DAILY [facility] Last Admin: 06/05/16 09:32 Dose: 325 mg Atenolol (Tenormin) 25 mg PO DAILY [facility] Last Admin: 06/05/16 09:32 Dose: 25 mg Bisacodyl (Dulcolax) 10 mg [place] DAILY PRN PRN Reason: If no BM by POD#3 Calcium Carbonate/Glycine (Tums) 1,000 - 2,000 mg PO Q2H PRN PRN Reason: Heartburn/Indigestion Celecoxib (Celebrex) 200 mg PO DAILY [facility] Last Admin: 06/05/16 09:33 Dose: 200 mg Divalproex Sodium (Depakote Er) 1,000 mg PO BEDTIME [facility] Last Admin: 06/04/16 21:17 Dose: 1,000 mg Docusate Sodium (Colace) 100 mg PO BID [facility] Last Admin: 06/05/16 09:32 Dose: 100 mg Folic Acid (Folic Acid) 1 mg PO DAILY [facility] Last Admin: 06/05/16 09:32 Dose: 1 mg Hydrochlorothiazide (Hydrochlorothiazide) 12.5 mg PO DAILY [facility] Last Admin: 06/05/16 09:32 Dose: 12.5 mg Hydromorphone HCl (Dilaudid) 0.5 - 2 mg IV Q2H PRN PRN Reason: Pain (Severe/Breakthrough) Hydromorphone HCl (Dilaudid) 0.5 - 2 mg IV Q2H PRN PRN Reason: Pain (Severe/Breakthrough) Hydroxyzine HCl (Atarax) 25 mg PO TID PRN PRN Reason: Anxiety Ropivacaine 450 ml/ Sterile (Water) 450 mls @ 0 mls/hr NB Q50H PRN; Protocol PRN Reason: Pain Last Admin: 06/05/16 08:10 Dose: 4 mls/hr Levetiracetam (Keppra) 1,500 mg PO BID [facility] Last Admin: 06/05/16 09:33 Dose: 1,500 mg Magnesium Hydroxide (Milk Of Magnesia) 30 ml PO DAILY PRN PRN Reason: If no BM by evening of POD#1 Multivitamins (One-A-Day) 1 tab PO DAILY [facility] Last Admin: 06/05/16 09:32 Dose: 1 tab Nitroglycerin (Nitrostat) 0.4 mg SL Q5M PRN PRN Reason: Chest Pain Ondansetron HCl (Zofran) 4 - 6 mg IV Q6H PRN PRN Reason: Nausea/Vomiting Last Admin: 06/03/16 21:31 Dose: 4 mg Oxycodone HCl (Roxicodone) 5 - 15 mg PO Q3H PRN PRN Reason: Pain (Moderate) Last Admin: 06/05/16 12:44 Dose: 10 mg Potassium Chloride (K-Dur) 10 meq PO DAILY [facility] Last Admin: 06/05/16 09:33 Dose: 10 meq Rosuvastatin Calcium (Crestor) 40 mg PO BEDTIME [facility] Last Admin: 06/04/16 21:15 Dose: 40 mg Sertraline HCl (Zoloft) 100 mg PO DAILY [facility] Last Admin: 06/05/16 09:32 Dose: 100 mg Sodium Chloride (Normal Saline 10ml Flush) 10 - 50 ml IV PRN PRN PRN Reason: IV Flush Sodium Chloride (Normal Saline 10ml Flush) 10 ml IV Q8HR [facility] Last Admin: 06/05/16 09:34 Dose: 10 ml Tiotropium [place] (Spiriva Handihaler) 1 cap IH DAILY [facility] Last Admin: 06/05/16 09:33 Dose: 2 puffs Trazodone HCl (Desyrel) 50 mg PO BEDTIME PRN PRN Reason: Insomnia - Problems: Assessment/Plan (1) Status post right knee replacement Status: AcuteAssessment/Plan: Appreciate ortho, therapeutic, nursing care. Anticipate DC in am 06/06 (2) Chronic obstructive pulmonary disease (COPD) Qualifiers: COPD type: unspecified COPD Qualifier Code: (J44.9) Chronic obstructive pulmonary disease, unspecified Status: ChronicAssessment/Plan: Stable, continue tx. VTE Prophylaxis: aspirin, mechanical.
[2016-06-05] MEDS: ROSUVASTATIN CALCIUM 10 MG TABLET PO SCH (20:53)
[2016-06-05] MEDS: DIVALPROEX SODIUM 500 MG PO SCH (20:54)
[2016-06-06] MEDS: ACETAMINOPHEN 500 MG TABLET PO SCH ×3 (01:15→12:12)
[2016-06-06 05:59] LABS: HEMATOCRIT 38.2 % (32.0-52.0); HEMOGLOBIN 13.1 gm/l (14.0-18.0)
[2016-06-06] MEDS ORDERED: BISACODYL 10 MG SUP ONE ×2 (07:25→07:37)
[2016-06-06] MEDS: OXYCODONE HCL 5 MG TABLET PO PRN ×2 (07:34→12:12)
[2016-06-06] MEDS: BUDESONIDE/FORMOTEROL 160/4.5 60 PUFFS/6 G INHALER IH SCH (09:20)
[2016-06-06] MEDS: POTASSIUM CHLORIDE 10 MEQ TAB.SR PO SCH (09:21)
[2016-06-06] MEDS: HYDROCHLOROTHIAZIDE 12.5 MG CAP PO SCH (09:21)
[2016-06-06] MEDS: DOCUSATE SODIUM 100 MG CAPSULE PO SCH (09:21)
[2016-06-06] MEDS: FOLIC ACID 1 MG TABLET PO SCH (09:21)
[2016-06-06] MEDS: ASPIRIN (ENTERIC COATED) 325 MG TABLET.EC PO SCH (09:21)
[2016-06-06] MEDS: CELECOXIB 200 MG CAPSULE PO SCH (09:21)
[2016-06-06] MEDS: ASCORBIC ACID 500 MG TABLET PO SCH (09:21)
[2016-06-06] MEDS: TIOTROPIUM BROMIDE 18 MCG 5 CAP/INHALER IH SCH (09:21)
[2016-06-06] MEDS: MULTIVITAMINS 1 TAB TABLET PO SCH (09:21)
[2016-06-06] MEDS: SERTRALINE HCL 50 MG TABLET PO SCH (09:21)
[2016-06-06] MEDS: ATENOLOL 25 MG TABLET PO SCH (09:21)
--- NOTE | 2016-06-06 09:39 | PDOC43 ---
- Subjective Findings: Ortho POD 3 R TKA Patient awake A and O times 4 this am presently working with PT. Patient states he's more painful today but tolerable. C/O his chronic left shoulder pain (cuff tendonopathy and OA). Also feeling tired with activities. Denies CP. Gets SOB with exertion but recovers. Tolerating regular diet, positive flatus. Fair progress with ambulatory PT. Is aware of transfer to [facility] today. Subjective: Denies Chest Pain, Denies Shortness of Breath (at rest), Denies Nausea, Denies Vomiting, Denies Fever - Objective Vital Signs Temperature 98.5 F 06/06/16 07:19 Pulse Rate 86 06/06/16 07:19 Respiratory Rate 17 06/06/16 07:19 Blood Pressure 118/84 06/06/16 07:19 O2 Saturation by Pulse Oximetry 96 06/06/16 07:19 Oxygen Delivery Method Room Air Oxygen Flow Rate 0 Laboratory 06/06/16 05:30 06/04/16 05:30 Active Medication Orders Category Date Time Status Acetaminophen [Tylenol] Med 06/03/16 18:30 Active 1,000 mg PO Q6H Albuterol Sulfate Mdi [Ventolin Hfa Mdi] Med 06/04/16 17:45 Active 0 puffs IH Q4H PRN Ascorbic Acid [Vitamin C] Med 06/03/16 21:00 Active 500 mg PO BID Aspirin (Enteric Coated) [Ecotrin] Med 06/04/16 09:00 Active 325 mg PO DAILY Atenolol [Tenormin] Med 06/03/16 15:00 Active 25 mg PO DAILY Bisacodyl [Dulcolax] Med 06/06/16 11:37 Active 10 mg [place] DAILY PRN Budesonide/Formoterol 160/4.5 [Symbicort 160-4.5 Mcg Med 06/03/16 21:00 Active Inhaler] 1 puffs IH BID Calcium Carbonate [Tums] Med 06/03/16 12:41 Active 1,000 - 2,000 mg PO Q2H PRN Celecoxib [Celebrex] Med 06/04/16 09:00 Active 200 mg PO DAILY Divalproex Sodium ER [Depakote ER] Med 06/03/16 21:00 Active 1,000 mg PO BEDTIME Docusate Sodium [Colace] Med 06/03/16 21:00 Active 100 mg PO BID Folic Acid Med 06/04/16 09:00 Active 1 mg PO DAILY Hydrochlorothiazide Med 06/04/16 09:00 Active 12.5 mg PO DAILY Hydromorphone HCl [Dilaudid] Med 06/03/16 13:09 Active 0.5 - 2 mg IV Q2H PRN Hydromorphone HCl [Dilaudid] Med 06/03/16 13:10 Active 0.5 - 2 mg IV Q2H PRN Hydroxyzine HCl [Atarax] Med 06/03/16 14:50 Active 25 mg PO TID PRN Levetiracetam [Keppra] Med 06/03/16 15:30 Active 1,500 mg PO BID Magnesium Hydroxide [Milk of Magnesia] Med 06/04/16 11:37 Active 30 ml PO DAILY PRN Multivitamins [One-A-Day] Med 06/04/16 09:00 Active 1 tab PO DAILY Nitroglycerin [Nitrostat] Med 06/03/16 14:50 Active 0.4 mg SL Q5M PRN On-Q Pump/Ropivacaine 0.2% 450 ml Med 06/03/16 12:41 Active Premix Bag [Premix Fluid] 1 each NB Q50H Ondansetron 4 mg/2ml Vial [Zofran] Med 06/03/16 12:41 Active 4 - 6 mg IV Q6H PRN Oxycodone HCl [Roxicodone] Med 06/03/16 12:41 Active 5 - 15 mg PO Q3H PRN Potassium [place] [K-Dur] Med 06/04/16 09:00 Active 10 meq PO DAILY Rosuvastatin Calcium [Crestor] Med 06/03/16 21:00 Active 40 mg PO BEDTIME Sertraline HCl [Zoloft] Med 06/04/16 09:00 Active 100 mg PO DAILY Sodium [place] 0.9% Flush [Normal Saline 10ml Flush] Med 06/03/16 12:41 Active 10 - 50 ml IV PRN PRN Sodium Chloride 0.9% Flush [Normal Saline 10ml Flush] Med 06/03/16 17:00 Active 10 ml IV Q8HR Tiotropium [place] 18 Mcg [Spiriva Handihaler] Med 06/03/16 19:30 Active 1 cap IH DAILY Trazodone HCl [Desyrel] Med 06/03/16 14:50 Active 50 mg PO BEDTIME PRN Intake and Output 06/04/16 06/05/16 06/06/16 23:59 23:59 23:59 Intake Total 2005 1180 750 Output Total 1475 1950 1525 Balance 411 -302 -476 Neurological: No Normal Gait (ambulating with a walker post R TKA) Peripheral Pulses: Right Posterior Tibialis: 1+, Right Dorsalis Pedis: 1+ - Right Lower Extremity Incision: Well Approximated (with a subcutaneous closure, skin glue and mesh), No Dressing Saturated, No Shadow Drainage, No Drainage, No Erythema, No Rash Motor: Extensor Hallucis Longus: 5/5, Tibialis Anterior: 5/5, Gastrocnemius: 4/5 , Peroneals: 5/5, Quadriceps: 4/5 Gross Sensation to Light Touch: Present: Deep Peroneal Nerve, Superficial Peroneal Nerve, Medial Plantar Nerve, Lateral Plantar Nerve, Sural Nerve, Saphenous Nerve Motion: AROM R Knee 5-60 with passive improvement. SLR without assist. Ankle full AROM. - Problems (1) Status post right knee replacement Status: AcuteAssessment/Plan: Ortho POD 3 R TKA progressing reasonably well 1. Continue: Physical Therapy: Mobilize with PT/OT. Encouraged bed exercise. Will add CPM as he struggled with motion after LTKA 2. Continue: Pain Control:Per protocol. Ween nerve cath as tolerated. 3. Continue: DVT Prophylaxis: ASA, foot pumps and mobility 4. Disposition: Doing reasonably well at this point and plan for transfer to [facility] today 06/06/16. 5. Medical Issues:Management per hospitalist. Appreciate the care and consult.
[2016-06-06] MEDS: LEVETIRACETAM 500 MG TABLET PO SCH (10:05)
[2016-06-06] MEDS ORDERED: BISACODYL 10 MG SUP PR PRN (11:37)
--- NOTE | 2016-06-06 11:56 | PDOC43 ---
- Subjective Chief Complaint: R TKA Patient reports being tired after doing PT, but ok otherwise. Breathing is fine. No new c/o. Ready for DC. Curious about getting L shoulder worked on by Dr Bolanos - Objective Vital Signs Temperature 98.5 F 06/06/16 07:19 Pulse Rate 86 06/06/16 07:19 Respiratory Rate 17 06/06/16 07:19 Blood Pressure 118/84 06/06/16 07:19 O2 Saturation by Pulse Oximetry 96 06/06/16 07:19 Oxygen Delivery Method Room Air Oxygen Flow Rate 0 Vital Signs Last 12 Hours Temp Pulse Resp BP Pulse Ox 06/06/16 07:19 98.5 F 86 17 118/84 96 06/06/16 02:32 20 06/06/16 02:00 97.9 F 83 20 108/75 96 Intake and Output 06/04/16 06/05/16 06/06/16 23:59 23:59 23:59 Intake Total 2005 1180 750 Output Total 1475 1950 1525 Balance 531 770 -595 General: Alert, Cooperative, No Acute Distress HEENT: Atraumatic Lungs: Clear to Auscultation Bilaterally, Normal Air Movement Cardiovascular: Regular Rate and Rhythm Abdomen: Soft, Normal Bowel Sounds, Non-Distended Extremities: Normal Cap Refill, Other (cooling sleeve, compression on, SCDs on.) Skin: Normal Color Neurological: Normal Speech Psych/Mental Status: Normal Affect (appears at baseline.) Laboratory 06/06/16 05:30 06/04/16 05:30 Current Medications: Current meds reviewed in EMR. Active Medications Acetaminophen (Tylenol) 1,000 mg PO Q6H [facility] Last Admin: 06/06/16 07:34 Dose: 1,000 mg Albuterol Sulfate (Ventolin Hfa Mdi) 0 puffs IH Q4H PRN PRN Reason: Wheezing Ascorbic Acid (Vitamin C) 500 mg PO BID [facility] Last Admin: 06/06/16 09:21 Dose: 500 mg Aspirin (Ecotrin) 325 mg PO DAILY [facility] Last Admin: 06/06/16 09:21 Dose: 325 mg Atenolol (Tenormin) 25 mg PO DAILY [facility] Last Admin: 06/06/16 09:21 Dose: 25 mg Bisacodyl (Dulcolax) [address] DAILY PRN PRN Reason: If no BM by POD#3 Last Admin: 06/06/16 07:34 Dose: 10 mg Calcium Carbonate/Glycine (Tums) 1,000 - 2,000 mg PO Q2H PRN PRN Reason: Heartburn/Indigestion Celecoxib (Celebrex) 200 mg PO DAILY [facility] Last Admin: 06/06/16 09:21 Dose: 200 mg Divalproex Sodium (Depakote Er) 1,000 mg PO BEDTIME [facility] Last Admin: 06/05/16 20:54 Dose: 1,000 mg Docusate Sodium (Colace) 100 mg PO BID [facility] Last Admin: 06/06/16 09:21 Dose: 100 mg Folic Acid (Folic Acid) 1 mg PO DAILY [facility] Last Admin: 06/06/16 09:21 Dose: 1 mg Hydrochlorothiazide (Hydrochlorothiazide) 12.5 mg PO DAILY [facility] Last Admin: 06/06/16 09:21 Dose: 12.5 mg Hydromorphone HCl (Dilaudid) 0.5 - 2 mg IV Q2H PRN PRN Reason: Pain (Severe/Breakthrough) Hydromorphone HCl (Dilaudid) 0.5 - 2 mg IV Q2H PRN PRN Reason: Pain (Severe/Breakthrough) Hydroxyzine HCl (Atarax) 25 mg PO TID PRN PRN Reason: Anxiety Ropivacaine 450 ml/ Sterile (Water) 450 mls @ 0 mls/hr NB Q50H PRN; Protocol PRN Reason: Pain Last Admin: 06/05/16 08:10 Dose: 4 mls/hr Levetiracetam (Keppra) 1,500 mg PO BID [facility] Last Admin: 06/06/16 10:05 Dose: 1,500 mg Magnesium Hydroxide (Milk Of Magnesia) 30 ml PO DAILY PRN PRN Reason: If no BM by evening of POD#1 Multivitamins (One-A-Day) 1 tab PO DAILY [facility] Last Admin: 06/06/16 09:21 Dose: 1 tab Nitroglycerin (Nitrostat) 0.4 mg SL Q5M PRN PRN Reason: Chest Pain Ondansetron HCl (Zofran) 4 - 6 mg IV Q6H PRN PRN Reason: Nausea/Vomiting Last Admin: 06/03/16 21:31 Dose: 4 mg Oxycodone HCl (Roxicodone) 5 - 15 mg PO Q3H PRN PRN Reason: Pain (Moderate) Last Admin: 06/06/16 07:34 Dose: 10 mg Potassium Chloride (K-Dur) 10 meq PO DAILY [facility] Last Admin: 06/06/16 09:21 Dose: 10 meq Rosuvastatin Calcium (Crestor) 40 mg PO BEDTIME [facility] Last Admin: 06/05/16 20:53 Dose: 40 mg Sertraline HCl (Zoloft) 100 mg PO DAILY [facility] Last Admin: 06/06/16 09:21 Dose: 100 mg Sodium Chloride (Normal Saline 10ml Flush) 10 - 50 ml IV PRN PRN PRN Reason: IV Flush Sodium Chloride (Normal Saline 10ml Flush) 10 ml IV Q8HR [facility] Last Admin: 06/06/16 09:20 Dose: 10 ml Tiotropium Finley (Spiriva Handihaler) 1 cap IH DAILY [facility] Last Admin: 06/06/16 09:21 Dose: 1 puffs Trazodone HCl (Desyrel) 50 mg PO BEDTIME PRN PRN Reason: Insomnia - Problems: Assessment/Plan (1) Status post right knee replacement Status: AcuteAssessment/Plan: Appreciate ortho, therapeutic, nursing care. Anticipate DC 06/06, to SNF (2) Chronic obstructive pulmonary disease (COPD) Qualifiers: COPD type: unspecified COPD Qualifier Code: (J44.9) Chronic obstructive pulmonary disease, unspecified Status: ChronicAssessment/Plan: Stable, continue tx. VTE Prophylaxis: aspirin, mechanical. Disposition: to SNF today
[2016-06-06 13:11] VITALS: BP 129/89
--- NOTE | 2016-06-07 12:04 | DS ---
Erick BRINK [id number] : 1955 DATE OF ADMISSION: June 03, 2016 DATE OF DISCHARGE: June 06, 2016 DISCHARGE DIAGNOSES: Right knee degenerative joint disease. HOSPITAL PROCEDURES: Right total knee arthroplasty. SURGEON: Alber Sampson M.D. BRIEF HISTORY: Patient is a 60-year-old male with both clinical and radiographic evidence of advanced DJD of their right knee. For the full history please see the chart note. BRIEF HOSPITAL COURSE: Patient was admitted on June 03, 2016. Dr. Alber Sampson performed a right total knee arthroplasty. They were moved to the recovery room in stable condition. They were given 4 doses of antibiotic for empiric coverage. DVT prophylaxis consisted of aspirin 325 mg daily, pneumatic compression, LESA hose and mobility. PT was instituted postop day 1 with right total knee arthroplasty protocol, weightbearing as tolerated. Their incision site remained benign, their vital signs remained stable and they remained neurally and vascularly intact through the duration of the stay. The patient progressed reasonably well and was discharged to [facility] to continue his rehabilitation on postoperative day 3 with right total knee arthroplasty protocol, weightbearing as tolerated. Jered Miller III, M.D. was consulted to manage perioperative medical comorbidities. For his consultation see the chart note. DISCHARGE INSTRUCTIONS: 1. Keep the wound site clean. May shower with Aquacel dressing intact. Call office with any questions or concerns and f/u for your dressing change as scheduled 1 week postop. 2. Continue the use of LESA hose bilaterally. 3. Cooling unit 3-4 times daily for 30 minutes duration. 4. Outpatient PT at [facility] for right total knee arthroplasty protocol, weightbearing as tolerated. MEDICATIONS: 1. Patient is to resume normal preop medications. 2. Anti-coagulation will be with aspirin 325 mg daily for six weeks. 3. The patient will also resume this. Plavix. 4. Pain management will be with Oxycodone, 5mg 1-2 every 4 hours prn for breakthrough pain. The patient did receive Celebrex 200 mg daily for 10 days. 5. Patient was also advised on utilization of a multi-vitamin with mineral daily as well as Vitamin C, 500mg daily for 1 month. 6. Patient encouraged to take an iron supplement in the form of ferrous sulfate, 325mg daily for 4 weeks. 7. Colace, 100mg, b.i.d. until regular bowel movement. FOLLOW-UP: Please return to the clinic as scheduled for your first scheduled postop check. Prior to that point in time please call with any questions or concerns. Job [id number] CC: [facility] Tony Arrieta D.O.
== END 2016-06-06 13:35 | DRG 470 ==
LOC: OR 06-03 06:39 → MS 06-03 13:17
PROVIDERS: ADMIT Orthopaedic Surgery; ATTEND Orthopaedic Surgery
PROC: 0SRC0J9 Replacement of Right Knee Joint with Synthetic Substitute, Cemented, Open Approach (ICD-10-PCS; principal; 2016-06-03)
DX: M17.11 Unilateral primary osteoarthritis, right knee (principal); J44.9 Chronic obstructive pulmonary disease, unspecified; M19.012 Primary osteoarthritis, left shoulder; Z96.652 Presence of left artificial knee joint; I25.10 Atherosclerotic heart disease of native coronary artery without angina pectoris; Z95.5 Presence of coronary angioplasty implant and graft; G40.909 Epilepsy, unspecified, not intractable, without status epilepticus; Z79.82 Long term (current) use of aspirin; Z88.5 Allergy status to narcotic agent; E78.5 Hyperlipidemia, unspecified; I25.2 Old myocardial infarction; I10 Essential (primary) hypertension